=== PATIENT | male | born 1990 | race Caucasian/White ===

== ENCOUNTER 2017-12-02 22:35 | Emergency (ER) | payer BC, OTHER ==
[2017-12-02] MEDS ORDERED: FLUORESCEIN SODIUM 0.6 MG/WRAP ONE (23:32)
[2017-12-02] MEDS ORDERED: TETRACAINE HCL 0.5% 2ML OPTH ONE (23:32)
[2017-12-02] MEDS ORDERED: TOBRAMYCIN SULF 0.3% OPTH OINT ONE (23:33)
--- NOTE | 2017-12-03 00:40 | EDPHYS ---
Physician Documentation [facility] Name: Saul Carlos Age: 27 yrs Sex: Male : 1990 Arrival Date: 12/02/2017 Time: 22:37 Bed 27 Private MD: Neal Martinez ED Physician Yimi Greenfield HPI: 12/03 00:14 This 27 yrs old Male presents to ER via Ambulatory with complaints of Eye jr8 Problem, Redness of Eye. 00:14 The patient is experiencing burning, matting or discharge, pain, redness, tearing. jr8 Onset: The symptoms/episode began/occurred gradually, 1 week(s) ago, and became worse. Duration: the symptoms are continuous. Aggravated by blinking, light, opening eye, pressure, rubbing, Alleviated by nothing. Associated signs and symptoms: Pertinent positives: None. Patient wears glasses. Severity of symptoms: At their worst the symptoms were moderate in the emergency department the symptoms are unchanged. The patient has not experienced similar symptoms in the past. The patient has been recently seen by a physician:. Patient stated that this past Sunday felt an irritation in right eye. Stated that he had been to the pool and beach a few days prior to this. Was seen at [place] and given antibiotic eye drops. Stated that since then his right eye is much worse and now has spread to the left eye. Stated that he feels as if the drops are making it worse . Historical: - Allergies: 12/02 23:01 No Known Allergies; ak1 - Home Meds: 23:01 None [Active]; ak1 - PMHx: 23:01 None; ak1 - PSHx: 23:01 Appendectomy; Tonsillectomy; ak1 - Immunization history:: Adult Immunizations unknown. - Social history:: Smoking status: Patient/guardian denies using tobacco. - Ebola Screening: : No symptoms or risks identified at this time. ROS: 12/03 00:14 ENT: Negative for injury, pain, and discharge, Neck: Negative for injury, pain, and jr8 swelling, Cardiovascular: Negative for chest pain, palpitations, and edema, Respiratory: Negative for shortness of breath, cough, wheezing, and pleuritic chest pain, Abdomen/GI: Negative for abdominal pain, nausea, vomiting, diarrhea, and constipation, Back: Negative for injury and pain, MS/Extremity: Negative for injury and deformity, Skin: Negative for injury, rash, and discoloration, Neuro: Negative for headache, weakness, numbness, tingling, and seizure. Eyes: Positive for blurry vision, discharge, pain, redness, tearing, of the right eye and left eye. Exam: 00:14 Head/Face: Normocephalic, atraumatic. ENT: Nares patent. No nasal discharge, no jr8 septal abnormalities noted. Tympanic membranes are normal and external auditory canals are clear. Oropharynx with no redness, swelling, or masses, exudates, or evidence of obstruction, uvula midline. Mucous membranes moist. Neck: Trachea midline, no thyromegaly or masses palpated, and no cervical lymphadenopathy. Supple, full range of motion without nuchal rigidity, or vertebral point tenderness. No Meningismus. Cardiovascular: Regular rate and rhythm with a normal S1 and S2. No gallops, murmurs, or rubs. Normal PMI, no JVD. No pulse deficits. Respiratory: Lungs have equal breath sounds bilaterally, clear to auscultation and percussion. No rales, rhonchi or wheezes noted. No increased work of breathing, no retractions or nasal flaring. Skin: Warm, dry with normal turgor. Normal color with no rashes, no lesions, and no evidence of cellulitis. MS/ Extremity: Pulses equal, no cyanosis. Neurovascular intact. Full, normal range of motion. Neuro: Awake and alert, GCS 15, oriented to person, place, time, and situation. Cranial nerves II-XII grossly intact. Motor strength 5/5 in all extremities. Sensory grossly intact. Cerebellar exam normal. Normal gait. 00:14 Eyes: Periorbital structures: appear normal, Pupils: equal, round, and reactive to light and accomodation, Extraocular movements: intact throughout, Conjunctiva: chemosis, that is moderate, that is severe, in right eye, in left eye, injected, bilaterally, tearing noted, bilaterally, Corneas: are normal, Anterior chamber: normal, Lids and lashes: erythema, seen bilaterally. Vital Signs: 12/02 22:58 BP 133 / 76; Pulse 78; Resp 18; Temp 98; Pulse Ox 99% on R/A; Weight 104.33 kg (R); ak1 Height 5 ft. 9 in. (175.26 cm) (R); Pain 6/10; 12/03 00:24 BP 131 / 78; Pulse 78; Resp 16; Pulse Ox 99% on R/A; mb3 12/02 22:58 Body Mass Index 33.96 (104.33 kg, 175.26 cm) ak1 Procedures: 00:37 Eye Exam: Fluorescein. jr8 MDM: 12/02 22:53 Patient medically screened. jr8 12/03 00:37 Data reviewed: vital signs, nurses notes, and as a result, I will discharge patient. jr8 Data interpreted: Pulse oximetry: on room air is 99 %. Interpretation: normal. Counseling: I had a detailed discussion with the patient and/or guardian regarding: the historical points, exam findings, and any diagnostic results supporting the discharge/admit diagnosis, the need for outpatient follow up, an opthalmologist, to return to the emergency department if symptoms worsen or persist or if there are any questions or concerns that arise at home. ED course: Dr. Mccullough consulted and will see patient first thing in the AM at clinic. Patient is good with this and will follow up. In the meantime wants him to do saline lubricating drops only. To D/C all antibiotic drops until he sees him. This was relayed to patient as well . 12/02 23:35 Order name: Eye Culture 12/02 23:35 Order name: Eye Culture Administered Medications: 12/02 23:52 Drug: Tetracaine Drops 0.5 % 1 drops Route: Ophthalmic; Site: both eyes; 3 12/03 00:45 Follow up: Response: No adverse reaction 3 12/02 23:52 Drug: Fluorescein Strip 1 strip Route: Ophthalmic; Site: both eyes; 3 12/03 00:45 Follow up: Response: No adverse reaction [facility] 12/02 23:52 Drug: Tobramycin Ointment (0.3 %) 1 application Route: Ophthalmic; Site: both eyes; 3 12/03 00:44 Follow up: Response: No adverse reaction 3 Disposition: 08:58 Co-signature as Attending Physician, Yimi Greenfield MD I agree with the assessment and kain plan of care. Disposition: 12/03/17 00:40 Discharged to Home. Impression: Conjunctivitis, Chemosis. - Condition is Stable. - Discharge Instructions: Conjunctivitis (Viral and Bacterial). - Medication Reconciliation Form, Thank You Letter, Antibiotic Education, Prescription Opioid Use form. - Follow up: Matthew Mccullough MD; When: Tomorrow; Reason: Recheck today's complaints, Continuance of care, Re-evaluation by your physician. - Problem is new. - Symptoms have improved. Signatures: Dispatcher [employer] EDMD Yimi Gerenfield MD MD cha Chretien, Felicia, RN RN Fernando Pruett PA PA jr8 Allie Dewitt RN RN ak1 Abel Cruz RN RN mb3 Corrections: (The following items were deleted from the chart) 00:46 00:40 12/03/2017 00:40 Discharged to Home. Impression: Conjunctivitis; Chemosis. mb3 Condition is Stable. Forms are Medication Reconciliation Form, Thank You Letter, Antibiotic Education, Prescription Opioid Use. Follow up: Matthew Mccullough; When: Tomorrow; Reason: Recheck today's complaints, Continuance of care, Re-evaluation by your physician. Problem is new. Symptoms have improved. jr8
--- NOTE | 2017-12-03 00:40 | ER ---
Nurse's Notes [facility] Name: Saul Carlos Age: 27 yrs Sex: Male : 1990 Arrival Date: 12/02/2017 Time: 22:37 Bed 27 Private MD: Neal Martinez Diagnosis: Conjunctivitis;Chemosis Presentation: 12/02 22:58 Presenting complaint: Patient states: bilateral redness, pain and swelling to eyes ak1 since last Sunday after going to the beach and the public pool. pt was seen in [place] [facility] Sunday and started polymyxin B and trimethoprim drops with no relief. Transition of care: patient was not received from another setting of care. Onset of symptoms was November 25, 2017. Risk Assessment: Do you want to hurt yourself or someone else? Patient reports no desire to harm self or others. Initial Sepsis Screen: Does the patient meet any 2 criteria? No. Patient's initial sepsis screen is negative. Does the patient have a suspected source of infection? No. Patient's initial sepsis screen is negative. Care prior to arrival: None. 22:58 Method Of Arrival: Ambulatory ak1 22:58 Acuity: THIEN 2 ak1 Triage Assessment: 23:01 General: Appears uncomfortable, Behavior is calm, cooperative. Pain: Complains of pain ak1 in right eye and left eye. EENT: Eyes are tearing on outer aspect of conjuctiva of right eye, iris of right eye, inner aspect of conjuctiva of right eye, outer aspect of conjuctiva of left eye, iris of left eye and inner aspect of conjunctiva of left eye Sclera/Cornea are reddened in outer aspect of conjuctiva of right eye, iris of right eye, inner aspect of conjuctiva of right eye, outer aspect of conjuctiva of left eye, iris of left eye and inner aspect of conjunctiva of left eye Lid(s) swelling noted. Neuro: No deficits noted. Cardiovascular: No deficits noted. Respiratory: No deficits noted. GI: No signs and/or symptoms were reported involving the gastrointestinal system. : No signs and/or symptoms were reported regarding the genitourinary system. Derm: No signs and/or symptoms reported regarding the dermatologic system. Musculoskeletal: No signs and/or symptoms reported regarding the musculoskeletal system. Historical: - Allergies: 23:01 No Known Allergies; ak1 - Home Meds: 23:01 None [Active]; ak1 - PMHx: 23:01 None; ak1 - PSHx: 23:01 Appendectomy; Tonsillectomy; ak1 - Immunization history:: Adult Immunizations unknown. - Social history:: Smoking status: Patient/guardian denies using tobacco. - Ebola Screening: : No symptoms or risks identified at this time. Screenin:02 Abuse screen: Denies threats or abuse. Denies injuries from another. Nutritional ak1 screening: No deficits noted. Tuberculosis screening: No symptoms or risk factors identified. Fall Risk None identified. Assessment: 23:30 General: Appears distressed, uncomfortable, well groomed, Behavior is calm, mb3 cooperative, appropriate for age. Pain: Complains of pain in right eye and left eye. Neuro: No deficits noted. Cardiovascular: No deficits noted. Respiratory: No deficits noted. GI: No deficits noted. EENT: Eyes are tearing on right eye and left eye with exudate noted from right eye and left eye both eyes swollen and seeping serosanguinous fluid. 12/03 00:26 Reassessment: No changes from previously documented assessment. Patient and/or family mb3 updated on plan of care and expected duration. Pain level reassessed. Patient is alert, oriented x 3, equal unlabored respirations, skin warm/dry/pink. Vital Signs: 12/02 22:58 BP 133 / 76; Pulse 78; Resp 18; Temp 98; Pulse Ox 99% on R/A; Weight 104.33 kg (R); ak1 Height 5 ft. 9 in. (175.26 cm) (R); Pain 6/10; 12/03 00:24 BP 131 / 78; Pulse 78; Resp 16; Pulse Ox 99% on R/A; mb3 12/02 22:58 Body Mass Index 33.96 (104.33 kg, 175.26 cm) ak1 ED Course: 12/02 22:37 Patient arrived in ED. es 22:37 Neal Martinez MD is Private Physician. es 22:48 Abel Cruz, LE is Primary Nurse. mb3 22:53 Fernando Harrell PA is PHCP. jr8 22:53 Yimi Greenfield MD is Attending Physician. jr8 23:00 Triage completed. ak1 23:01 Arm band placed on Patient placed in an exam room, on a stretcher, on pulse oximetry, ak1 Patient notified of wait time. 23:02 Patient has correct armband on for positive identification. Bed in low position. Call ak1 light in reach. Side rails up X 1. Adult w/ patient. Pulse ox on. NIBP on. 07 00:39 Matthew Mccullough MD is Referral Physician. jr8 00:46 No provider procedures requiring assistance completed. Patient did not have IV access mb3 during this emergency room visit. Administered Medications: 12/02 23:52 Drug: Tetracaine Drops 0.5 % 1 drops Route: Ophthalmic; Site: both eyes; mb3 12/03 00:45 Follow up: Response: No adverse reaction mb3 12/02 23:52 Drug: Fluorescein Strip 1 strip Route: Ophthalmic; Site: both eyes; mb3 12/03 00:45 Follow up: Response: No adverse reaction mb3 12/02 23:52 Drug: Tobramycin Ointment (0.3 %) 1 application Route: Ophthalmic; Site: both eyes; mb3 12/03 00:44 Follow up: Response: No adverse reaction mb3 Outcome: 00:40 Discharge ordered by MD. jr8 00:45 Discharged to home ambulatory, with family. mb3 00:45 Condition: stable 00:45 Discharge instructions given to patient, Instructed on discharge instructions, follow up and referral plans. medication usage, Demonstrated understanding of instructions, follow-up care, medications. 00:46 Patient left the ED. mb3 Signatures: Tianna Fox Josh, PA PA jr8 Allie Dewitt RN RN ak1 Abel Cruz RN RN mb3
== END 2017-12-03 00:46 | disposition home or self-care (01) ==
LOC: ER 22:35
DX: H10.9 Unspecified conjunctivitis (principal); H11.421 Conjunctival edema, right eye
CPT/HCPCS: 87070; 99283

== ENCOUNTER 2022-08-07 13:12 | Emergency (ER) | payer SELFPAY ==
--- NOTE | 2022-08-07 13:31 | ER ---
Nurse's Notes [facility] Name: Saul Carlos Age: 32 yrs Sex: Male : 1990 Arrival Date: 08/07/2022 Time: 13:16 Bed IW3 Private MD: Diagnosis: Dental caries, unspecified Presentation: 08/07 13:28 Chief complaint: Patient states: toothache to left side of mouth. Coronavirus screen: aa5 At this time, the client does not indicate any symptoms associated with coronavirus-19. Ebola Screen: Patient denies travel to an Ebola-affected area in the 21 days before illness onset. Initial Sepsis Screen: Does the patient meet any 2 criteria? No. Patient's initial sepsis screen is negative. Does the patient have a suspected source of infection? No. Patient's initial sepsis screen is negative. Risk Assessment: Do you want to hurt yourself or someone else? Patient reports no desire to harm self or others. Onset of symptoms was August 2022. 13:28 Method Of Arrival: Ambulatory aa5 13:28 Acuity: THIEN 4 aa5 Historical: - Allergies: 13:28 No Known Allergies; aa5 - PMHx: 13:28 None; aa5 - Immunization history:: Adult Immunizations unknown. - Social history:: Smoking status: Patient reports the use of cigarette tobacco products. - Family history:: not pertinent. Vital Signs: 13:28 BP 136 / 81; Pulse 73; Resp 18 S; Temp 98.1(TE); Pulse Ox 98% on R/A; Weight 115.67 kg aa5 (R); Height 5 ft. 9 in. (175.26 cm) (R); 13:28 Body Mass Index 37.66 (115.67 kg, 175.26 cm) aa5 ED Course: 13:16 Patient arrived in ED. mr 13:19 Steve Marie MD is Attending Physician. rt 13:28 Arm band placed on. aa5 13:29 Triage completed. aa5 14:37 Valerie Barrios, RN is Primary Nurse. iw Administered Medications: 13:38 Drug: Ketorolac 30 mg Route: IM; Site: right deltoid; aa5 Outcome: 13:30 Discharge ordered by . rt 14:43 Patient left the ED. iw Signatures: Sue Bermudez mr Valerie Barrios, Mery Miranda RN, RN RN aa5 Steve Marie MD MD rt Corrections: (The following items were deleted from the chart) 13:29 13:28 Social history: Smoking status: Patient denies any tobacco usage or history of. aa5 aa5 13:38 13:28 Pulse 73bpm; Resp 18bpm; Spontaneous; Pulse Ox 98% RA; Temp 98.1F Temporal; aa5 115.67 kg Reported; Height 5 ft. 9 in. Reported; BMI: 37.6; aa5
--- NOTE | 2022-08-07 13:31 | EDPHYS ---
Physician Documentation [facility] Name: Saul Carlos Age: 32 yrs Sex: Male : 1990 Arrival Date: 08/07/2022 Time: 13:16 Bed IW3 Private MD: ED Physician Steve Marie HPI: 08/07 13:35 This 32 yrs old Male presents to ER via Ambulatory with complaints of Toothache. rt 13:35 Patient presents to the ED with a left-sided dental pain. Is been on for 3 days. Is rt aching nature, nonradiating. Patient is taken Motrin and acetaminophen to no relief. He denies other acute complaints at this time, symptoms are mild in severity, no other aggravating or elevating factors. Denies difficulty swallowing.. Historical: - Allergies: 13:28 No Known Allergies; aa5 - PMHx: 13:28 None; aa5 - Immunization history:: Adult Immunizations unknown. - Social history:: Smoking status: Patient reports the use of cigarette tobacco products. - Family history:: not pertinent. ROS: 13:35 Constitutional: Negative for fever, chills, and weight loss, Neck: Negative for injury, rt pain, and swelling, MS/Extremity: Negative for injury and deformity, Skin: Negative for injury, rash, and discoloration, Neuro: Negative for headache, weakness, numbness, tingling, and seizure, Psych: Negative for depression, anxiety, suicide ideation, homicidal ideation, and hallucinations. 13:35 ENT: Positive for dental pain, Negative for sore throat. Exam: 13:35 Constitutional: This is a well developed, well nourished patient who is awake, alert, rt and in no acute distress. Head/Face: Normocephalic, atraumatic. Chest/axilla: Normal chest wall appearance and motion. Nontender with no deformity. No lesions are appreciated. Cardiovascular: Regular rate and rhythm with a normal S1 and S2. No gallops, murmurs, or rubs. Normal PMI, no JVD. No pulse deficits. Respiratory: Lungs have equal breath sounds bilaterally, clear to auscultation and percussion. No rales, rhonchi or wheezes noted. No increased work of breathing, no retractions or nasal flaring. Abdomen/GI: Soft, non-tender, with normal bowel sounds. No distension or tympany. No guarding or rebound. No evidence of tenderness throughout. Skin: Warm, dry with normal turgor. Normal color with no rashes, no lesions, and no evidence of cellulitis. MS/ Extremity: Pulses equal, no cyanosis. Neurovascular intact. Full, normal range of motion. Neuro: Awake and alert, GCS 15, oriented to person, place, time, and situation. Cranial nerves II-XII grossly intact. Motor strength 5/5 in all extremities. Sensory grossly intact. Cerebellar exam normal. Normal gait. Psych: Awake, alert, with orientation to person, place and time. Behavior, mood, and affect are within normal limits. 13:35 ENT: Multiple dental caries noted to the left lower jaw, no drainable abscess, uvula is midline, no posterior pharyngeal erythema.. Vital Signs: 13:28 BP 136 / 81; Pulse 73; Resp 18 S; Temp 98.1(TE); Pulse Ox 98% on R/A; Weight 115.67 kg aa5 (R); Height 5 ft. 9 in. (175.26 cm) (R); 13:28 Body Mass Index 37.66 (115.67 kg, 175.26 cm) aa5 MDM: 13:29 Patient medically screened. rt 13:35 Differential diagnosis: dental caries, dental abscess. Data reviewed: vital signs, rt nurses notes. Test considered but Not performed: CT: Low suspicion for ANNEALING OPERATOR, RPA, Marychuy's angina, CT scan not indicated.. Counseling: I had a detailed discussion with the patient and/or guardian regarding: the historical points, exam findings, and any diagnostic results supporting the discharge/admit diagnosis, the need for outpatient follow up, smoking cessation. Administered Medications: 13:38 Drug: Ketorolac 30 mg Route: IM; Site: right deltoid; aa5 Disposition Summary: 08/07/22 13:30 Discharge Ordered Location: Home rt Problem: new rt Symptoms: are unchanged rt Condition: Stable rt Diagnosis - Dental caries, unspecified rt Followup: rt - With: Private Physician - When: 2 - 3 days - Reason: Discharge Instructions: - Discharge Summary Sheet rt - Dental Caries, Adult rt Forms: - Work release form iw - Medication Reconciliation Form rt - Thank You Letter rt - Antibiotic Education rt - Prescription Opioid Use rt Prescriptions: - Amoxicillin 875 mg Oral Tablet - take 1 tablet by ORAL route every 12 hours for 10 days; 20 tablet; Refills: 0, rt Product Selection Permitted Signatures: Mery Turner RN RN aa5 Steve Marie MD MD rt Corrections: (The following items were deleted from the chart) 13:29 13:28 Social history: Smoking status: Patient denies any tobacco usage or history of. aa5 aa5
[2022-08-07] MEDS ORDERED: KETOROLAC 30 MG/ML INJ ONE (13:37)
[2022-08-07 14:48] VITALS: BP 136/81; TEMP 98.1; O2SAT 98
== END 2022-08-07 14:43 | disposition home or self-care (01) ==
LOC: ER 13:12
DX: K02.9 Dental caries, unspecified (principal)
CPT/HCPCS: 96372; 99282